=== PATIENT | male | born 1970 | race Caucasian/White ===

== ENCOUNTER 2017-06-03 09:31 | Emergency (ER) | payer MEDICAID ==
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
[2017-06-03] MEDS ORDERED: MAGNESIUM SULFATE 2 GRAM 2 GM/50 ML BAG IV STA (11:21)
[2017-06-03] MEDS ORDERED: LORazepam 2 MG/ML SYRINGE IVP STA (11:21)
[2017-06-03] MEDS ORDERED: MULTIVITAMIN 10 ML in SODIUM CHLORIDE 0.9% 1,000 ML IV STA (11:21)
[2017-06-03] MEDS ORDERED: THIAMINE INJ 100 MG, FOLIC ACID INJ 1 MG in SODIUM CHLORIDE 0.9% 100ML 100 ML IV STA (11:21)
[2017-06-03] MEDS ORDERED: HYDROCORTISONE 1% CREAM 28 GM TUBE TOP STA (11:21)
[2017-06-03 11:35] LABS: BASOPHILS % (AUTO) 0.4 %; EOSINOPHILS % (AUTO) 0.1 %; HCT - HEMATOCRIT 38.3 % (42.0-52.0); HGB - HEMOGLOBIN 13.6 g/dL (14.0-18.0); LYMPHOCYTES # (AUTO) 1.1 10^3/uL (1.5-3.5); LYMPHOCYTES % (AUTO) 23.4 %; MEAN CORPUSCULAR HEMOGLOBIN 37.5 pg (27.0-31.0); MEAN CORPUSCULAR HGB CONC 35.5 g/dL (32.0-36.0); MEAN CORPUSCULAR VOLUME 105.8 fL (80.0-94.0); MEAN PLATELET VOLUME 7.8 fL (7.4-11.4); MONOCYTES # (AUTO) 0.4 10^3/uL (0.0-1.0); NEUTROPHILS # (AUTO) 3.2 10^3/uL (1.5-6.6); NEUTROPHILS % (AUTO) 67.1 %; RED BLOOD COUNT 3.62 10^6/uL (4.70-6.10); RED CELL DISTRIBUTION WIDTH 15.7 % (12.0-15.0); UNCORRECTED WHITE BLOOD COUNT 4.8 x10^3/uL; WHITE BLOOD COUNT 4.8 x10^3/uL (4.8-10.8)
[2017-06-03 11:41] LABS: ALBUMIN/GLOBULIN RATIO 1.5 (1.0-2.2); BILIRUBIN,TOTAL 1.4 mg/dL (0.2-1.0); BUN - BLOOD UREA NITROGEN 8 mg/dL (6-20); CALCIUM 9.2 mg/dL (8.5-10.3); CARBON DIOXIDE - CO2 24 mmol/L (21-32); CHLORIDE 99 mmol/L (101-111); CREATININE 0.7 mg/dL (0.6-1.2); GFR - MDRD 120 (>89); GLUCOSE 113 mg/dL (70-100); LIPASE 32 U/L (22-51); POTASSIUM 3.5 mmol/L (3.5-5.0); SODIUM 135 mmol/L (135-145); TOTAL PROTEIN 7.8 g/dL (6.7-8.2)
[2017-06-03] MEDS ORDERED: LORazepam 2 MG/ML SYRINGE ONE (11:46)
[2017-06-03] MEDS ORDERED: MAGNESIUM SULFATE 2 GRAM 2 GM/50 ML BAG IV ONE (12:53)
[2017-06-03 13:02] LABS: BILIRUBIN,URINE NEGATIVE (NEGATIVE)
[2017-06-03 13:03] LABS: UA CHARGE (STRIP ONLY) YES; UR CULTURE IF IND NOT INDICATED
[2017-06-03 15:04] VITALS: BP 150/91
[2017-06-03] MEDS ORDERED: HYDROmorphone 1 MG/ML CARPUJECT ONE (17:34)
== END 2017-06-03 16:13 | disposition home or self-care (01) ==
LOC: ED 09:31
DX: F43.23 Adjustment disorder with mixed anxiety and depressed mood (principal); E86.0 Dehydration; F10.20 Alcohol dependence, uncomplicated; Y90.0 Blood alcohol level of less than 20 mg/100 ml; Z59.0 Homelessness
CPT/HCPCS: 36415; 80053; 80306; 80320; 81003; 83690; 84484; 85025; 93005; 96365; 96366; 96375; 99283; 99284; A9270; J1170; J2060; J3411; 81001; 87086

== ENCOUNTER 2017-08-28 13:00 | Outpatient (CLI) | payer MEDICAID | END 2017-08-28 13:01 | disposition home or self-care (01) | LOC: EMS 13:00 | PROVIDERS: ATTEND Surgery | DX: S09.90XA Unspecified injury of head, initial encounter (principal); V18.0XXA Pedal cycle driver injured in noncollision transport accident in nontraffic accident, initial encounter; Y92.414 Local residential or business street as the place of occurrence of the external cause | CPT/HCPCS: A0425; A0429 ==

== ENCOUNTER 2017-08-28 13:29 | Emergency (ER) | payer MEDICAID ==
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
[2017-08-28] MEDS ORDERED: OLANZapine 10 MG VIAL IM STA (14:43)
[2017-08-28] MEDS ORDERED: WATER FOR INJECTION,STERILE 10 ML ONE (14:56)
[2017-08-28 18:06] VITALS: BP 139/94
[2017-08-28] MEDS ORDERED: ACETAMINOPHEN 325 MG TABLET PO STA (18:09)
== END 2017-08-28 18:22 | disposition home or self-care (01) ==
LOC: EDUNIT# → ED 13:29
DX: F10.129 Alcohol abuse with intoxication, unspecified (principal); V18.4XXA Pedal cycle driver injured in noncollision transport accident in traffic accident, initial encounter; Y93.55 Activity, bike riding; Y92.488 Other paved roadways as the place of occurrence of the external cause
CPT/HCPCS: 96372; 99283; 99284